=== PATIENT | male | born 1985 | race Caucasian/White ===

== ENCOUNTER 2016-10-17 09:40 | Emergency (ER) | payer OTHER ==
[~2016-10-17] VITALS: Ht 182.9 cm; Wt 102.9 kg
[~2016-10-17 09:40] MED LIST: AUGM875T PO; BUSP5TAB PO; LEXA5TAB PO; LITH150C PO; TRAZ50TA12 PO
[2016-10-17 09:59] VITALS: BP 133/72; PULSE 99; RESP 18; TEMP 99.5; O2SAT 96
[2016-10-17] MEDS ORDERED: IBUPROFEN 800 MG TAB PO ONE (11:30)
[2016-10-17 11:52] VITALS: RESP 16
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
== END 2016-10-17 13:50 | disposition home or self-care (01) ==
LOC: NEPJ 09:40
DX: S51.812A Laceration without foreign body of left forearm, initial encounter (principal); S81.811A Laceration without foreign body, right lower leg, initial encounter; F10.14 Alcohol abuse with alcohol-induced mood disorder; F43.10 Post-traumatic stress disorder, unspecified; F60.3 Borderline personality disorder; Z56.0 Unemployment, unspecified; W54.0XXA Bitten by dog, initial encounter; Y93.9 Activity, unspecified; Y92.9 Unspecified place or not applicable; Y99.9 Unspecified external cause status
CPT/HCPCS: 12001; 73090; 80053; 80307; 85025; 99284